=== PATIENT | male | born 1985 | race Caucasian/White ===

== ENCOUNTER 2017-08-10 15:09 | Inpatient (IN) | payer MEDICARE, MEDICAID ==
[~2017-08-10] VITALS: Ht 157.5 cm; Wt 31.4 kg
[~2017-08-10 15:09] MED LIST: ARIP300S IM; CITA10TA13 PO; DIVA500T69 PO; ESZO1TAB10 PO; FISH1CAP49 PO; LORA10TA60 PO; OMEP10CA2 PO; QUET150T PO; SIMV5TAB2 PO
[2017-08-10 18:31] VITALS: BP 138/89
[2017-08-10 20:09] VITALS: BP 145/86
[2017-08-10] MEDS ORDERED: ALBUTEROL SULFATE HFA 90 MCG/PUFF 8 GM INHALER IH PRN (20:30)
[2017-08-10] MEDS ORDERED: IBUPROFEN 600 MG TABLET PO PRN (20:30)
[2017-08-10] MEDS ORDERED: ACETAMINOPHEN 325 MG TABLET PO PRN (20:30)
[2017-08-10] MEDS: SIMVASTATIN 10 MG TABLET PO SCH (21:43)
[2017-08-10] MEDS: DIVALPROEX SODIUM 500 MG ER TABLET PO SCH (21:43)
[2017-08-10] MEDS: ARIPiprazole 5 MG TABLET PO SCH (21:44)
[2017-08-11] MEDS: ZOLPIDEM TARTRATE 10 MG TABLET PO PRN ×2 (00:16→20:53)
[2017-08-11 07:28] LABS: BASOPHILS % (AUTO) 0.6 % (0.0-2.0); EOSINOPHILS % (AUTO) 1.8 % (1.0-6.0); HEMATOCRIT 39.2 % (41-53); HEMOGLOBIN 13.4 g/dL (13.5-17.5); LYMPHOCYTES % (AUTO) 44.4 % (22.0-44.0); MEAN CORPUSCULAR HEMOGLOBIN 31.5 pg (26.0-34.0); MEAN CORPUSCULAR HGB CONC 34.2 G/dL (31.0-37.0); MEAN CORPUSCULAR VOLUME 92 fL (80-100); MONOCYTES # (AUTO) 0.7 K/uL (0.1-1.0); MONOCYTES % (AUTO) 9.9 % (2.0-9.0); NEUTROPHILS # (AUTO) 2.9 K/uL (1.8-7.7); NEUTROPHILS % (AUTO) 43.3 % (40.0-70.0); PLATELET COUNT (AUTO) 136 K/uL (150-450); RED BLOOD CELL COUNT(AUTO) 4.26 MIL/uL (4.50-5.90); RED CELL DISTRIBUTION WIDTH 13.9 % (11.5-14.5); WHITE BLOOD COUNT (AUTO) 6.8 K/uL (4.5-11.0)
[2017-08-11] MEDS ORDERED: BACITRACIN 28.4 GM OINTMENT TP PRN (07:45)
[2017-08-11] MEDS ORDERED: MAGNESIUM HYDROXIDE SUSPENSION 30 ML UDCUP PO PRN (07:45)
[2017-08-11] MEDS ORDERED: PETROLATUM,WHITE 71 GM JELLY TP PRN (07:45)
[2017-08-11] MEDS ORDERED: BENZOCAINE/MENTHOL LOZENGE MM PRN (07:45)
[2017-08-11] MEDS ORDERED: ACETAMINOPHEN 325 MG TABLET PO PRN (07:45)
[2017-08-11] MEDS ORDERED: MAG HYDROX/AL HYDROX/SIMETH ES 30 ML SUSPENSION UDCUP PO PRN (07:45)
[2017-08-11] MEDS ORDERED: ONDANSETRON HCL 4 MG TABLET PO PRN (07:45)
[2017-08-11] MEDS ORDERED: ALBUTEROL SULFATE HFA 90 MCG/PUFF 8 GM INHALER IH PRN (07:45)
[2017-08-11] MEDS ORDERED: CloNIDine HCL 0.1 MG TABLET PO PRN (07:45)
[2017-08-11] MEDS ORDERED: LOPERAMIDE HCL 2 MG CAPSULE PO PRN (07:45)
[2017-08-11 07:48] LABS: ALANINE AMINOTRANSFERASE 48 U/L (12-78); ALBUMIN 3.5 g/dL (3.4-5.0); ANION GAP 7 mmol/L (8-16); ASPARTATE AMINOTRANSFERASE 33 U/L (15-37); BILIRUBIN,TOTAL 0.3 mg/dL (0.1-1.0); CALCIUM, TOTAL 8.7 mg/dL (8.8-10.5); CARBON DIOXIDE 29 mmol/L (22-29); CHLORIDE 108 mmol/L (98-107); CHOL/HDL RATIO 3.5 (4.2-7.3); CREATININE 0.84 mg/dL (0.60-1.30); GLOMERULAR FILTR. RATE CALC > 60 mL/min (>60); POTASSIUM 3.9 mmol/L (3.5-5.1); SODIUM SERUM 144 mmol/L (136-145); THYROID STIMULATING HORMONE 0.77 uIU/mL (0.36-3.74); TOTAL PROTEIN, SERUM 6.2 g/dL (6.4-8.2); UREA NITROGEN, BLOOD 17 mg/dL (7-18)
[2017-08-11 08:36] VITALS: BP 122/69
[2017-08-11] MEDS ORDERED: OMEPRAZOLE 20 MG CAPSULE PO SCH (09:00)
[2017-08-11] MEDS: RANITIDINE HCL 150 MG TABLET PO SCH ×2 (09:21→16:53)
[2017-08-11] MEDS: LORATADINE 10 MG TABLET PO SCH (09:22)
[2017-08-11] MEDS: LORazepam 2 MG TABLET PO PRN ×3 (09:31→20:53)
[2017-08-11 16:00] VITALS: BP 116/67
[2017-08-11] MEDS: QUEtiapine FUMARATE 100 MG TABLET PO PRN (16:53)
[2017-08-11] MEDS: DIVALPROEX SODIUM 500 MG ER TABLET PO SCH (20:53)
[2017-08-11] MEDS: ARIPiprazole 5 MG TABLET PO SCH (20:53)
[2017-08-11] MEDS: SIMVASTATIN 10 MG TABLET PO SCH (20:53)
[2017-08-12 05:54] VITALS: BP 129/68
[2017-08-12] MEDS: LORazepam 2 MG TABLET PO PRN ×3 (06:12→22:05)
[2017-08-12 08:00] VITALS: BP 121/73
[2017-08-12] MEDS: QUEtiapine FUMARATE 100 MG TABLET PO PRN (08:56)
[2017-08-12] MEDS: RANITIDINE HCL 150 MG TABLET PO SCH ×2 (08:56→16:54)
[2017-08-12] MEDS: LORATADINE 10 MG TABLET PO SCH (08:56)
[2017-08-12 16:00] VITALS: BP 130/68
[2017-08-12] MEDS: ZOLPIDEM TARTRATE 10 MG TABLET PO PRN (20:25)
[2017-08-12] MEDS: SIMVASTATIN 10 MG TABLET PO SCH (20:25)
[2017-08-12] MEDS: DIVALPROEX SODIUM 500 MG ER TABLET PO SCH (20:25)
[2017-08-12] MEDS: ARIPiprazole 5 MG TABLET PO SCH (20:25)
[2017-08-13] MEDS: QUEtiapine FUMARATE 100 MG TABLET PO PRN ×3 (01:24→16:07)
[2017-08-13] MEDS: LORazepam 2 MG TABLET PO PRN ×3 (01:24→20:10)
[2017-08-13 08:32] VITALS: BP 139/85
[2017-08-13] MEDS: LORATADINE 10 MG TABLET PO SCH (09:45)
[2017-08-13] MEDS: CITALOPRAM HYDROBROMIDE 10 MG TABLET PO SCH (09:45)
[2017-08-13] MEDS: RANITIDINE HCL 150 MG TABLET PO SCH ×2 (09:45→16:07)
[2017-08-13] MEDS: IBUPROFEN 600 MG TABLET PO PRN (12:36)
[2017-08-13 12:40] VITALS: BP 130/84
[2017-08-13 16:00] VITALS: BP 124/74
[2017-08-13] MEDS: DiphenhydrAMINE HCL 25 MG CAPSULE PO SCH (20:09)
[2017-08-13] MEDS: ARIPiprazole 5 MG TABLET PO SCH (20:09)
[2017-08-13] MEDS: ZOLPIDEM TARTRATE 10 MG TABLET PO PRN (20:10)
[2017-08-13] MEDS: DIVALPROEX SODIUM 500 MG ER TABLET PO SCH (20:10)
[2017-08-13] MEDS: SIMVASTATIN 10 MG TABLET PO SCH (20:10)
[2017-08-14 00:14] VITALS: BP 117/81
[2017-08-14] MEDS: QUEtiapine FUMARATE 100 MG TABLET PO PRN ×3 (00:18→23:59)
[2017-08-14] MEDS: LORazepam 2 MG TABLET PO PRN ×3 (00:18→14:06)
[2017-08-14] MEDS: IBUPROFEN 600 MG TABLET PO PRN (02:47)
[2017-08-14 08:10] VITALS: BP 122/72
[2017-08-14] MEDS: RANITIDINE HCL 150 MG TABLET PO SCH ×2 (08:33→16:15)
[2017-08-14] MEDS: LORATADINE 10 MG TABLET PO SCH (08:33)
[2017-08-14] MEDS: CITALOPRAM HYDROBROMIDE 10 MG TABLET PO SCH (08:34)
[2017-08-14 16:15] VITALS: BP 126/72
[2017-08-14] MEDS: DiphenhydrAMINE HCL 25 MG CAPSULE PO SCH (20:12)
[2017-08-14] MEDS: SIMVASTATIN 10 MG TABLET PO SCH (20:13)
[2017-08-14] MEDS: ZOLPIDEM TARTRATE 10 MG TABLET PO PRN (20:13)
[2017-08-14] MEDS: DIVALPROEX SODIUM 500 MG ER TABLET PO SCH (20:13)
[2017-08-14] MEDS: ARIPiprazole 5 MG TABLET PO SCH (20:13)
[2017-08-15 01:14] VITALS: BP 132/65
[2017-08-15 08:26] VITALS: BP 132/81
[2017-08-15] MEDS: RANITIDINE HCL 150 MG TABLET PO SCH ×2 (08:45→16:23)
[2017-08-15] MEDS: CITALOPRAM HYDROBROMIDE 10 MG TABLET PO SCH (08:45)
[2017-08-15] MEDS: LORATADINE 10 MG TABLET PO SCH (08:45)
[2017-08-15] MEDS: QUEtiapine FUMARATE 100 MG TABLET PO PRN ×2 (09:01→16:23)
[2017-08-15] MEDS: LORazepam 0.5 MG TABLET PO PRN ×2 (13:54→20:35)
[2017-08-15 16:00] VITALS: BP 108/70
[2017-08-15] MEDS: ARIPiprazole 5 MG TABLET PO SCH (20:34)
[2017-08-15] MEDS: DiphenhydrAMINE HCL 25 MG CAPSULE PO SCH (20:34)
[2017-08-15] MEDS: ZOLPIDEM TARTRATE 10 MG TABLET PO PRN (20:35)
[2017-08-15] MEDS: SIMVASTATIN 10 MG TABLET PO SCH (20:35)
[2017-08-15] MEDS: DIVALPROEX SODIUM 500 MG ER TABLET PO SCH (20:35)
[2017-08-16] MEDS: QUEtiapine FUMARATE 100 MG TABLET PO PRN ×3 (00:08→16:09)
[2017-08-16 00:11] VITALS: BP 123/76
[2017-08-16] MEDS: IBUPROFEN 600 MG TABLET PO PRN ×2 (03:22→11:02)
[2017-08-16 08:18] VITALS: BP 107/65
[2017-08-16] MEDS: CITALOPRAM HYDROBROMIDE 10 MG TABLET PO SCH (08:20)
[2017-08-16] MEDS: LORATADINE 10 MG TABLET PO SCH (08:20)
[2017-08-16] MEDS: RANITIDINE HCL 150 MG TABLET PO SCH ×2 (08:20→16:09)
[2017-08-16 11:00] VITALS: BP 104/70
[2017-08-16] MEDS: LORazepam 0.5 MG TABLET PO PRN ×2 (11:00→16:09)
[2017-08-16] MEDS ORDERED: BENZOCAINE 10% 7 GM GEL TP PRN (12:30)
[2017-08-16 16:08] VITALS: BP 135/88
[2017-08-16] MEDS: ARIPiprazole 5 MG TABLET PO SCH (20:08)
[2017-08-16] MEDS: ZOLPIDEM TARTRATE 10 MG TABLET PO PRN (20:09)
[2017-08-16] MEDS: DiphenhydrAMINE HCL 25 MG CAPSULE PO SCH (20:09)
[2017-08-16] MEDS: DIVALPROEX SODIUM 500 MG ER TABLET PO SCH (20:09)
[2017-08-16] MEDS: SIMVASTATIN 10 MG TABLET PO SCH (20:09)
[2017-08-17 00:16] VITALS: BP 140/99
[2017-08-17] MEDS: QUEtiapine FUMARATE 100 MG TABLET PO PRN (00:16)
[2017-08-17] MEDS: LORazepam 0.5 MG TABLET PO PRN ×2 (00:16→05:16)
[2017-08-17] MEDS ORDERED: MAGNESIUM SULFATE 454 GM BOX PO SCH (07:30)
[2017-08-17] MEDS: RANITIDINE HCL 150 MG TABLET PO SCH (08:15)
[2017-08-17] MEDS: LORATADINE 10 MG TABLET PO SCH (08:15)
[2017-08-17] MEDS: CITALOPRAM HYDROBROMIDE 10 MG TABLET PO SCH (08:15)
[2017-08-17 08:16] VITALS: BP 139/82
[2017-08-17] MEDS ORDERED: DIVA500T52 PO (09:23)
[2017-08-17] MEDS ORDERED: ARIP5TAB8 PO (09:25)
[2017-08-17] MEDS ORDERED: RANI150T7 PO (09:25)
[2017-08-17] MEDS ORDERED: DIPH50 PO (09:25)
[2017-11-10] MEDS ORDERED: SIMV-259 PO (17:14)
[2017-11-18] MEDS ORDERED: QUET50TA PO (15:14)
[2017-11-18] MEDS ORDERED: ARIP5TAB8 PO (15:16)
[2017-11-18] MEDS ORDERED: CHOL100053 PO (15:16)
== END 2017-08-17 10:20 | disposition home or self-care (01) | DRG 885 ==
LOC: EDSTATUS 18:04 → B3A 18:55
PROVIDERS: ADMIT Psychiatry & Neurology Psychiatry; ATTEND Psychiatry & Neurology Psychiatry
DX: F31.5 Bipolar disorder, current episode depressed, severe, with psychotic features (principal); R45.851 Suicidal ideations; F15.20 Other stimulant dependence, uncomplicated; R03.0 Elevated blood-pressure reading, without diagnosis of hypertension; K21.9 Gastro-esophageal reflux disease without esophagitis; J45.909 Unspecified asthma, uncomplicated; G47.00 Insomnia, unspecified; F17.200 Nicotine dependence, unspecified, uncomplicated; F12.10 Cannabis abuse, uncomplicated; K08.89 Other specified disorders of teeth and supporting structures; F10.10 Alcohol abuse, uncomplicated; Z59.0 Homelessness; Z71.6 Tobacco abuse counseling; Z88.1 Allergy status to other antibiotic agents; Z91.19 Patient's noncompliance with other medical treatment and regimen
CPT/HCPCS: 84439; 84443; 87081

== ENCOUNTER 2017-11-18 15:38 | Inpatient (IN) | payer MEDICARE, MEDICAID ==
[~2017-11-18] VITALS: Ht 162.6 cm; Wt 70.8 kg
[~2017-11-18 15:38] MED LIST changes: +ARIP5TAB8 PO; +CHOL100053 PO; +DIPH50 PO; +DIVA500T52 PO; -DIVA500T69 PO; -ESZO1TAB10 PO; -FISH1CAP49 PO; -OMEP10CA2 PO; -QUET150T PO; +QUET50TA PO; +RANI150T7 PO; +SIMV-259 PO; -SIMV5TAB2 PO
[2017-11-18] MEDS ORDERED: DiphenhydrAMINE HCL 25 MG CAPSULE PO PRN (16:00)
[2017-11-18] MEDS ORDERED: MAG HYDROX/AL HYDROX/SIMETH ES 30 ML SUSPENSION UDCUP PO PRN (16:00)
[2017-11-18] MEDS ORDERED: LOPERAMIDE HCL 2 MG CAPSULE PO PRN (16:00)
[2017-11-18] MEDS ORDERED: MAGNESIUM HYDROXIDE SUSPENSION 30 ML UDCUP PO PRN (16:00)
[2017-11-18] MEDS ORDERED: ACETAMINOPHEN 325 MG TABLET PO PRN (16:00)
[2017-11-18] MEDS ORDERED: QUEtiapine FUMARATE 100 MG TABLET PO SCH (16:00)
[2017-11-18] MEDS ORDERED: ACETAMINOPHEN 650 MG/20.3 ML SOLUTION UDCUP PO PRN (16:15)
[2017-11-18] MEDS ORDERED: PETROLATUM,WHITE 71 GM JELLY TP PRN (16:15)
[2017-11-18] MEDS ORDERED: CloNIDine HCL 0.1 MG TABLET PO PRN (16:15)
[2017-11-18] MEDS ORDERED: ONDANSETRON HCL 4 MG TABLET PO PRN (16:15)
[2017-11-18] MEDS ORDERED: ALBUTEROL SULFATE HFA 90 MCG/PUFF 8 GM INHALER IH PRN (16:15)
[2017-11-18] MEDS ORDERED: BACITRACIN 28.4 GM OINTMENT TP PRN (16:15)
[2017-11-18] MEDS ORDERED: BENZOCAINE/MENTHOL LOZENGE [8 LOZENGES/PACKET] PO PRN (16:15)
[2017-11-18 19:00] VITALS: BP 135/80
[2017-11-18] MEDS: ZOLPIDEM TARTRATE 10 MG TABLET PO PRN (20:55)
[2017-11-18] MEDS: QUEtiapine FUMARATE 200 MG TABLET PO SCH (20:55)
[2017-11-18] MEDS: DIVALPROEX SODIUM 500 MG ER TABLET PO SCH (20:55)
[2017-11-18] MEDS: ChlorproMAZINE HCL 100 MG TABLET PO PRN (20:55)
[2017-11-18] MEDS ORDERED: ARIPiprazole 5 MG TABLET PO SCH (21:00)
[2017-11-19] VITALS (10 sets, daily range): BP systolic 112–138; BP diastolic 68–88
[2017-11-19] MEDS: ChlorproMAZINE HCL 100 MG TABLET PO SCH ×3 (07:16→16:50)
[2017-11-19] MEDS: OMEGA-3/DHA/EPA/FISH OIL 1,000 MG CAPSULE PO SCH (08:45)
[2017-11-19] MEDS: DIVALPROEX SODIUM 500 MG ER TABLET PO SCH ×2 (08:45→20:32)
[2017-11-19] MEDS: RANITIDINE HCL 150 MG TABLET PO SCH (08:45)
[2017-11-19] MEDS: ChlorproMAZINE HCL 100 MG TABLET PO PRN (08:45)
[2017-11-19] MEDS: LORazepam 2 MG TABLET PO PRN ×2 (08:45→13:15)
[2017-11-19] MEDS: IBUPROFEN 600 MG TABLET PO PRN ×2 (11:22→20:32)
[2017-11-19] MEDS ORDERED: QUET100T PO (19:04)
[2017-11-19] MEDS: ARIPiprazole 10 MG TABLET PO SCH (20:32)
[2017-11-19] MEDS: QUEtiapine FUMARATE 200 MG TABLET PO SCH (20:32)
[2017-11-20] MEDS: LORazepam 2 MG TABLET PO PRN ×2 (03:42→17:35)
[2017-11-20 03:46] VITALS: BP 105/69
[2017-11-20] MEDS: ChlorproMAZINE HCL 100 MG TABLET PO SCH ×3 (06:28→17:35)
[2017-11-20 08:00] VITALS: BP 121/76
[2017-11-20] MEDS: DIVALPROEX SODIUM 500 MG ER TABLET PO SCH ×2 (09:44→21:30)
[2017-11-20] MEDS: OMEGA-3/DHA/EPA/FISH OIL 1,000 MG CAPSULE PO SCH (09:45)
[2017-11-20] MEDS: RANITIDINE HCL 150 MG TABLET PO SCH (09:45)
[2017-11-20 16:12] VITALS: BP 114/69
[2017-11-20] MEDS: QUEtiapine FUMARATE 100 MG TABLET PO PRN (17:35)
[2017-11-20] MEDS: QUEtiapine FUMARATE 200 MG TABLET PO SCH (21:30)
[2017-11-20] MEDS: ZOLPIDEM TARTRATE 10 MG TABLET PO PRN (21:30)
[2017-11-20] MEDS: ARIPiprazole 10 MG TABLET PO SCH (21:30)
[2017-11-21 06:05] VITALS: BP 107/67
[2017-11-21] MEDS: ChlorproMAZINE HCL 100 MG TABLET PO SCH ×3 (06:25→16:54)
[2017-11-21 08:13] VITALS: BP 117/71
[2017-11-21 08:46] LABS: HEMATOCRIT 39.4 % (41-53); HEMOGLOBIN 13.5 g/dL (13.5-17.5); MEAN CORPUSCULAR HEMOGLOBIN 30.9 pg (26.0-34.0); MEAN CORPUSCULAR HGB CONC 34.3 G/dL (31.0-37.0); MEAN CORPUSCULAR VOLUME 90 fL (80-100); PLATELET COUNT (AUTO) 127 K/uL (150-450); RED BLOOD CELL COUNT(AUTO) 4.38 MIL/uL (4.50-5.90); RED CELL DISTRIBUTION WIDTH 14.1 % (11.5-14.5)
[2017-11-21] MEDS: OMEGA-3/DHA/EPA/FISH OIL 1,000 MG CAPSULE PO SCH (09:12)
[2017-11-21] MEDS: RANITIDINE HCL 150 MG TABLET PO SCH (09:12)
[2017-11-21] MEDS: DIVALPROEX SODIUM 500 MG ER TABLET PO SCH ×2 (09:12→20:33)
[2017-11-21 09:14] LABS: ANION GAP 7 mmol/L (8-16); CALCIUM, TOTAL 8.7 mg/dL (8.8-10.5); CARBON DIOXIDE 28 mmol/L (22-29); CHLORIDE 102 mmol/L (98-107); CREATININE 0.96 mg/dL (0.60-1.30); GLOMERULAR FILTR. RATE CALC > 60 mL/min (>60); GLUCOSE,RANDOM 103 mg/dL (70-110); SODIUM SERUM 137 mmol/L (136-145); UREA NITROGEN, BLOOD 15 mg/dL (7-18)
[2017-11-21 10:29] LABS: BAND NEUTROPHILS % (MANUAL) 1 % (1-5); LYMPHOCYTES % (MANUAL) 33 % (22-44); MONOCYTES % (MANUAL) 5 % (2-9); SEGMENTED NEUTROPHILS % 61 % (40-70)
[2017-11-21] MEDS: LORazepam 2 MG TABLET PO PRN (11:01)
[2017-11-21] MEDS: IBUPROFEN 600 MG TABLET PO PRN (13:50)
[2017-11-21 13:52] VITALS: BP 123/77
[2017-11-21] MEDS ORDERED: MAGNESIUM OXIDE 400 MG TABLET PO SCH ×2 (14:00→17:00)
[2017-11-21 16:00] VITALS: BP 114/79
[2017-11-21] MEDS: MAGNESIUM OXIDE 400 MG TABLET PO SCH (16:54)
[2017-11-21] MEDS: ARIPiprazole 15 MG TABLET PO SCH (20:33)
[2017-11-21] MEDS: QUEtiapine FUMARATE 200 MG TABLET PO SCH (20:33)
[2017-11-21] MEDS: QUEtiapine FUMARATE 100 MG TABLET PO PRN (23:43)
[2017-11-21] MEDS: ZOLPIDEM TARTRATE 10 MG TABLET PO PRN (23:43)
[2017-11-22 00:05] VITALS: BP 115/80
[2017-11-22] MEDS: ChlorproMAZINE HCL 100 MG TABLET PO SCH ×3 (06:20→16:05)
[2017-11-22] MEDS: MAGNESIUM OXIDE 400 MG TABLET PO SCH ×2 (08:12→16:06)
[2017-11-22] MEDS: RANITIDINE HCL 150 MG TABLET PO SCH (08:12)
[2017-11-22] MEDS: DIVALPROEX SODIUM 500 MG ER TABLET PO SCH ×2 (08:12→21:05)
[2017-11-22] MEDS: LORazepam 2 MG TABLET PO PRN ×2 (08:12→16:05)
[2017-11-22] MEDS: OMEGA-3/DHA/EPA/FISH OIL 1,000 MG CAPSULE PO SCH (08:16)
[2017-11-22 09:12] VITALS: BP 120/68
[2017-11-22] MEDS: IBUPROFEN 600 MG TABLET PO PRN ×2 (10:16→22:23)
[2017-11-22 16:00] VITALS: BP 120/78
[2017-11-22] MEDS: QUEtiapine FUMARATE 200 MG TABLET PO SCH (21:05)
[2017-11-22] MEDS: ARIPiprazole 15 MG TABLET PO SCH (21:05)
[2017-11-22] MEDS: ZOLPIDEM TARTRATE 10 MG TABLET PO PRN (22:23)
[2017-11-23 03:49] VITALS: BP 119/73
[2017-11-23] MEDS: IBUPROFEN 600 MG TABLET PO PRN ×2 (04:45→18:46)
[2017-11-23] MEDS: ChlorproMAZINE HCL 100 MG TABLET PO SCH ×3 (06:18→16:19)
[2017-11-23 08:13] LABS: BASOPHILS % (AUTO) 0.6 % (0.0-2.0); EOSINOPHILS % (AUTO) 2.5 % (1.0-6.0); HEMATOCRIT 38.6 % (41-53); LYMPHOCYTES # (AUTO) 2.3 K/uL (1.0-4.8); LYMPHOCYTES % (AUTO) 42.3 % (22.0-44.0); MEAN CORPUSCULAR HEMOGLOBIN 30.6 pg (26.0-34.0); MEAN CORPUSCULAR HGB CONC 33.7 G/dL (31.0-37.0); MEAN CORPUSCULAR VOLUME 91 fL (80-100); MONOCYTES # (AUTO) 0.5 K/uL (0.1-1.0); MONOCYTES % (AUTO) 9.6 % (2.0-9.0); NEUTROPHILS # (AUTO) 2.4 K/uL (1.8-7.7); PLATELET COUNT (AUTO) 124 K/uL (150-450); RED BLOOD CELL COUNT(AUTO) 4.26 MIL/uL (4.50-5.90); RED CELL DISTRIBUTION WIDTH 14.4 % (11.5-14.5)
[2017-11-23 08:45] VITALS: BP 125/74
[2017-11-23] MEDS: RANITIDINE HCL 150 MG TABLET PO SCH (08:46)
[2017-11-23] MEDS: OMEGA-3/DHA/EPA/FISH OIL 1,000 MG CAPSULE PO SCH (08:46)
[2017-11-23] MEDS: LORazepam 2 MG TABLET PO PRN ×3 (08:46→17:33)
[2017-11-23] MEDS: DIVALPROEX SODIUM 500 MG ER TABLET PO SCH ×2 (08:46→20:30)
[2017-11-23] MEDS: MAGNESIUM OXIDE 400 MG TABLET PO SCH (08:46)
[2017-11-23] MEDS ORDERED: ARIPiprazole ER SUSPENSION 400 MG PRE-FILLED DUAL CHAMBER SYRINGE IM SCH (09:00)
[2017-11-23 09:59] LABS: ALBUMIN 3.6 g/dL (3.4-5.0); BILIRUBIN,TOTAL 0.1 mg/dL (0.1-1.0); TOTAL PROTEIN, SERUM 6.6 g/dL (6.4-8.2)
[2017-11-23 10:02] LABS: BILIRUBIN,DIRECT 0.1 mg/dL (0.00-0.20)
[2017-11-23] MEDS: QUEtiapine FUMARATE 100 MG TABLET PO PRN (12:47)
[2017-11-23 16:32] VITALS: BP 118/75
[2017-11-23 18:40] VITALS: BP 129/79
[2017-11-23] MEDS: ARIPiprazole 15 MG TABLET PO SCH (20:30)
[2017-11-23] MEDS: ZOLPIDEM TARTRATE 10 MG TABLET PO PRN (21:13)
[2017-11-24 03:00] VITALS: BP 124/86
[2017-11-24] MEDS: IBUPROFEN 600 MG TABLET PO PRN ×2 (03:04→10:25)
[2017-11-24] MEDS: LORazepam 2 MG TABLET PO PRN (03:05)
[2017-11-24] MEDS: ChlorproMAZINE HCL 100 MG TABLET PO SCH (06:17)
[2017-11-24] MEDS ORDERED: CHLO100T24 PO (06:49)
[2017-11-24 08:39] VITALS: BP 134/84
[2017-11-24] MEDS ORDERED: OMEG-135 PO (09:54)
[2017-11-24] MEDS: DIVALPROEX SODIUM 500 MG ER TABLET PO SCH (10:24)
[2017-11-24] MEDS: RANITIDINE HCL 150 MG TABLET PO SCH (10:25)
[2017-11-24] MEDS: OMEGA-3/DHA/EPA/FISH OIL 1,000 MG CAPSULE PO SCH (10:25)
== END 2017-11-24 10:40 | disposition home or self-care (01) | DRG 885 ==
LOC: B3A 17:26
PROVIDERS: ADMIT Psychiatry & Neurology Psychiatry; ATTEND Psychiatry & Neurology Psychiatry
DX: F31.64 Bipolar disorder, current episode mixed, severe, with psychotic features (principal); F15.20 Other stimulant dependence, uncomplicated; Z91.14 Patient's other noncompliance with medication regimen; Z91.19 Patient's noncompliance with other medical treatment and regimen; E66.9 Obesity, unspecified; E78.5 Hyperlipidemia, unspecified; F12.20 Cannabis dependence, uncomplicated; F14.10 Cocaine abuse, uncomplicated; F17.200 Nicotine dependence, unspecified, uncomplicated; F41.9 Anxiety disorder, unspecified; G47.00 Insomnia, unspecified; J45.909 Unspecified asthma, uncomplicated; K08.89 Other specified disorders of teeth and supporting structures; K21.9 Gastro-esophageal reflux disease without esophagitis; Z79.899 Other long term (current) drug therapy; Z59.0 Homelessness; Z71.51 Drug abuse counseling and surveillance of drug abuser; Z71.6 Tobacco abuse counseling; Z88.1 Allergy status to other antibiotic agents; Z88.8 Allergy status to other drugs, medicaments and biological substances
CPT/HCPCS: 83735; 84100; 85007; 86803; J0401

== ENCOUNTER 2017-12-13 20:10 | Inpatient (IN) | payer MEDICARE, MEDICAID ==
[~2017-12-13] VITALS: Ht 152.4 cm; Wt 71.8 kg
[~2017-12-13 20:10] MED LIST changes: +ARIP10TA8 PO; -ARIP300S IM; +CHLO100T24 PO; -CITA10TA13 PO; -DIPH50 PO; -LORA10TA60 PO; +OMEG-135 PO; -QUET50TA PO; -SIMV-259 PO
[2017-12-13] MEDS ORDERED: QUET100T PO (22:01)
[2017-12-13 22:19] LABS: EOSINOPHILS % (AUTO) 0.7 % (1.0-6.0); HEMATOCRIT 39.8 % (41-53); HEMOGLOBIN 13.4 g/dL (13.5-17.5); LYMPHOCYTES # (AUTO) 2.6 K/uL (1.0-4.8); LYMPHOCYTES % (AUTO) 29.1 % (22.0-44.0); MEAN CORPUSCULAR HEMOGLOBIN 30.2 pg (26.0-34.0); MEAN CORPUSCULAR HGB CONC 33.7 G/dL (31.0-37.0); MEAN CORPUSCULAR VOLUME 90 fL (80-100); MONOCYTES # (AUTO) 0.7 K/uL (0.1-1.0); MONOCYTES % (AUTO) 7.4 % (2.0-9.0); NEUTROPHILS # (AUTO) 5.5 K/uL (1.8-7.7); NEUTROPHILS % (AUTO) 61.8 % (40.0-70.0); PLATELET COUNT (AUTO) 207 K/uL (150-450); RED BLOOD CELL COUNT(AUTO) 4.44 MIL/uL (4.50-5.90); RED CELL DISTRIBUTION WIDTH 14.7 % (11.5-14.5)
[2017-12-13 22:30] LABS: ANION GAP 5 mmol/L (8-16); CALCIUM, TOTAL 9.2 mg/dL (8.8-10.5); CARBON DIOXIDE 31 mmol/L (22-29); CHLORIDE 104 mmol/L (98-107); CREATININE 0.74 mg/dL (0.60-1.30); GLOMERULAR FILTR. RATE CALC > 60 mL/min (>60); GLUCOSE,RANDOM 83 mg/dL (70-110); POTASSIUM 3.8 mmol/L (3.5-5.1); SODIUM SERUM 140 mmol/L (136-145); UREA NITROGEN, BLOOD 11 mg/dL (7-18)
[2017-12-13 22:33] LABS: AMPHET/METH SCREEN,URINE POSITIVE (NEGATIVE); BARBITURATE SCREEN, URINE NEGATIVE (NEGATIVE); BENZODIAZEPINES SCREEN,URINE NEGATIVE (NEGATIVE); CANNABINOID SCREEN,URINE POSITIVE (NEGATIVE); COCAINE SCREEN,URINE NEGATIVE (NEGATIVE); METHADONE SCREEN, URINE NEGATIVE (NEGATIVE); OPIATE SCREEN,URINE POSITIVE (NEGATIVE)
[2017-12-13 22:36] LABS: ALANINE AMINOTRANSFERASE 33 U/L (12-78); ALBUMIN 4.3 g/dL (3.4-5.0); ALKALINE PHOSPHATASE 61 U/L (46-116); ASPARTATE AMINOTRANSFERASE 28 U/L (15-37); BILIRUBIN,TOTAL 0.4 mg/dL (0.1-1.0); TOTAL PROTEIN, SERUM 7.7 g/dL (6.4-8.2); VALPROIC ACID 36 mcg/mL (50-100)
[2017-12-13 22:40] LABS: PHENCYCLIDINE SCREEN,URINE NEGATIVE (NEGATIVE)
[2017-12-13] MEDS ORDERED: LORazepam 2 MG TABLET PO ONE (23:15)
[2017-12-13] MEDS ORDERED: ZOLPIDEM TARTRATE 5 MG TABLET PO PRN (23:45)
[2017-12-13] MEDS ORDERED: ChlorproMAZINE HCL 25 MG TABLET PO PRN (23:45)
[2017-12-13] MEDS ORDERED: LORazepam 2 MG TABLET PO PRN (23:45)
[2017-12-14] MEDS ORDERED: ChlorproMAZINE HCL 100 MG TABLET PO PRN (00:15)
[2017-12-14 03:41] VITALS: BP 124/70
[2017-12-14] MEDS ORDERED: LORazepam 2 MG/ML VIAL IM ONE (08:15)
[2017-12-14] MEDS ORDERED: DiphenhydrAMINE HCL 50 MG/ML VIAL IM ONE (08:15)
[2017-12-14 08:38] VITALS: BP 132/83
[2017-12-14 08:59] LABS: CHOL/HDL RATIO 2.8 (4.2-7.3)
[2017-12-14] MEDS ORDERED: DIVALPROEX SODIUM 500 MG ER TABLET PO SCH (09:00)
[2017-12-14] MEDS ORDERED: BENZOCAINE/MENTHOL LOZENGE MM PRN (09:15)
[2017-12-14] MEDS ORDERED: IBUPROFEN 600 MG TABLET PO PRN (09:15)
[2017-12-14] MEDS ORDERED: ACETAMINOPHEN 325 MG TABLET PO PRN (09:15)
[2017-12-14] MEDS ORDERED: BACITRACIN 28.4 GM OINTMENT TP PRN (09:15)
[2017-12-14] MEDS ORDERED: ONDANSETRON HCL 4 MG TABLET PO PRN (09:15)
[2017-12-14] MEDS ORDERED: PETROLATUM,WHITE 71 GM JELLY TP PRN (09:15)
[2017-12-14] MEDS ORDERED: MAGNESIUM HYDROXIDE SUSPENSION 30 ML UDCUP PO PRN (09:15)
[2017-12-14] MEDS ORDERED: LOPERAMIDE HCL 2 MG CAPSULE PO PRN (09:15)
[2017-12-14] MEDS ORDERED: ALBUTEROL SULFATE HFA 90 MCG/PUFF 8 GM INHALER IH PRN (09:15)
[2017-12-14] MEDS ORDERED: MAG HYDROX/AL HYDROX/SIMETH ES 30 ML SUSPENSION UDCUP PO PRN (09:15)
[2017-12-14] MEDS ORDERED: CloNIDine HCL 0.1 MG TABLET PO PRN (09:15)
[2017-12-14] MEDS ORDERED: QUEtiapine FUMARATE 100 MG TABLET PO SCH (21:00)
[2017-12-14] MEDS ORDERED: ARIPiprazole 5 MG TABLET PO SCH (21:00)
== END 2017-12-14 10:26 | DRG 885 ==
LOC: EMS 20:15 → B2X 23:30
PROVIDERS: ADMIT Psychiatry & Neurology Psychiatry; ATTEND Psychiatry & Neurology Psychiatry
DX: F25.9 Schizoaffective disorder, unspecified (principal); F31.9 Bipolar disorder, unspecified; Z88.1 Allergy status to other antibiotic agents; Z88.8 Allergy status to other drugs, medicaments and biological substances; Z79.899 Other long term (current) drug therapy
CPT/HCPCS: 87081; 99285; G0480; J1200; J2060; J3230

== ENCOUNTER → 2018-05-14 | Outpatient (CLI) | payer MEDICARE, OTHER ==
[~2018-05-14] MED LIST changes: -ARIP5TAB8 PO; +BENZ1TAB10 PO; -CHLO100T24 PO; -CHOL100053 PO; +CITA10TA68 PO; +DIVA250T4 PO; +ESZO2 PO; -OMEG-135 PO; +QUET200T PO; -RANI150T7 PO
[2018-05-14 19:12] LABS: HEMOGLOBIN A1C 5.3 % (4.5-6.2)
== END | disposition home or self-care (01) ==
LOC: LABMN 10:30
PROVIDERS: ATTEND Psychiatry & Neurology Psychiatry
DX: F25.0 Schizoaffective disorder, bipolar type (principal); F41.9 Anxiety disorder, unspecified; J45.909 Unspecified asthma, uncomplicated; Z79.899 Other long term (current) drug therapy
CPT/HCPCS: 83036

== ENCOUNTER 2018-10-19 16:40 | Inpatient (IN) | payer MEDICARE, MEDICAID ==
[~2018-10-19] VITALS: Ht 160 cm; Wt 66.5 kg
[2018-10-19] MEDS ORDERED: ChlorproMAZINE HCL 100 MG TABLET PO PRN (18:15)
[2018-10-19] MEDS ORDERED: ZOLPIDEM TARTRATE 5 MG TABLET PO PRN (18:15)
[2018-10-19 18:44] VITALS: BP 127/86
[2018-10-19] MEDS ORDERED: PNEUMOCOCCAL VACCINE POLYVALENT 0.5 ML VIAL [PPSV23] IM ONE (19:15)
[2018-10-19 19:47] VITALS: BP 139/89
[2018-10-19] MEDS ORDERED: LORazepam 2 MG/ML VIAL IM ONE (20:00)
[2018-10-19] MEDS ORDERED: DiphenhydrAMINE HCL 50 MG/ML VIAL IM ONE (20:00)
[2018-10-19] MEDS: QUEtiapine FUMARATE 100 MG TABLET PO SCH (20:19)
[2018-10-19] MEDS: DIVALPROEX SODIUM 500 MG ER TABLET PO SCH (20:19)
[2018-10-19] MEDS: LORazepam 2 MG TABLET PO PRN (20:20)
[2018-10-19] MEDS ORDERED: PETROLATUM,WHITE 71 GM JELLY TP PRN (21:30)
[2018-10-19] MEDS ORDERED: MAGNESIUM HYDROXIDE SUSPENSION 30 ML UDCUP PO PRN (21:30)
[2018-10-19] MEDS ORDERED: BACITRACIN 28.4 GM OINTMENT TP PRN (21:30)
[2018-10-19] MEDS ORDERED: ACETAMINOPHEN 325 MG TABLET PO PRN (21:30)
[2018-10-19] MEDS ORDERED: MAG HYDROX/AL HYDROX/SIMETH ES 30 ML SUSPENSION UDCUP PO PRN (21:30)
[2018-10-19] MEDS ORDERED: ONDANSETRON HCL 4 MG TABLET PO PRN (21:30)
[2018-10-19] MEDS ORDERED: LOPERAMIDE HCL 2 MG CAPSULE PO PRN (21:30)
[2018-10-19] MEDS ORDERED: IBUPROFEN 600 MG TABLET PO PRN (21:30)
[2018-10-19] MEDS ORDERED: BENZOCAINE/MENTHOL LOZENGE MM PRN (21:30)
[2018-10-19] MEDS ORDERED: CloNIDine HCL 0.1 MG TABLET PO PRN (21:30)
[2018-10-19] MEDS ORDERED: ALBUTEROL SULFATE HFA 90 MCG/PUFF 8 GM INHALER IH PRN (21:30)
[2018-10-20 05:23] VITALS: BP 121/76
[2018-10-20 07:32] LABS: BASOPHILS % (AUTO) 0.9 % (0.0-2.0); EOSINOPHILS % (AUTO) 3.1 % (1.0-6.0); HEMATOCRIT 37.7 % (41-53); HEMOGLOBIN 13.2 g/dL (13.5-17.5); LYMPHOCYTES # (AUTO) 2.6 K/uL (1.0-4.8); LYMPHOCYTES % (AUTO) 44.2 % (22.0-44.0); MEAN CORPUSCULAR HEMOGLOBIN 31.3 pg (26.0-34.0); MEAN CORPUSCULAR HGB CONC 34.9 G/dL (31.0-37.0); MEAN CORPUSCULAR VOLUME 90 fL (80-100); MONOCYTES # (AUTO) 0.5 K/uL (0.1-1.0); MONOCYTES % (AUTO) 7.9 % (2.0-9.0); NEUTROPHILS # (AUTO) 2.5 K/uL (1.8-7.7); NEUTROPHILS % (AUTO) 43.9 % (40.0-70.0); PLATELET COUNT (AUTO) 218 K/uL (150-450); RED BLOOD CELL COUNT(AUTO) 4.21 MIL/uL (4.50-5.90); RED CELL DISTRIBUTION WIDTH 14.2 % (11.5-14.5)
[2018-10-20 07:46] LABS: HEMOGLOBIN A1C 5.3 % (4.5-6.2)
[2018-10-20 08:10] LABS: ALANINE AMINOTRANSFERASE 28 U/L (12-78); ALBUMIN 3.6 g/dL (3.4-5.0); ALKALINE PHOSPHATASE 66 U/L (46-116); ANION GAP 7 mmol/L (8-16); ASPARTATE AMINOTRANSFERASE 17 U/L (15-37); BILIRUBIN,TOTAL 0.2 mg/dL (0.1-1.0); CALCIUM, TOTAL 8.9 mg/dL (8.8-10.5); CARBON DIOXIDE 27 mmol/L (22-29); CHLORIDE 107 mmol/L (98-107); CHOL/HDL RATIO 4.2 (4.2-7.3); CHOLESTEROL 151 mg/dL (131-200); CREATININE 0.77 mg/dL (0.60-1.30); FREE T4 (FREE THYROXINE) 0.77 ng/dL (0.76-1.46); GLOMERULAR FILTR. RATE CALC > 60 mL/min (>60); GLUCOSE,RANDOM 83 mg/dL (70-110); HDL CHOLESTEROL 36 mg/dL (40-60); LDL CHOL (CALC.) 102 mg/dL (0-130); POTASSIUM 4.3 mmol/L (3.5-5.1); SODIUM SERUM 141 mmol/L (136-145); THYROID STIMULATING HORMONE 1.04 uIU/mL (0.36-3.74); TOTAL PROTEIN, SERUM 6.5 g/dL (6.4-8.2); TRIGLYCERIDES 67 mg/dL (15-150); UREA NITROGEN, BLOOD 17 mg/dL (7-18)
[2018-10-20] MEDS: ARIPiprazole 5 MG TABLET PO SCH (09:27)
[2018-10-20] MEDS: DOCUSATE SODIUM 100 MG CAPSULE PO SCH (09:27)
[2018-10-20] MEDS: OMEPRAZOLE 20 MG CAPSULE PO SCH (09:27)
[2018-10-20 09:43] VITALS: BP 135/72
[2018-10-20] MEDS: QUEtiapine FUMARATE 100 MG TABLET PO SCH (20:23)
[2018-10-20] MEDS: DIVALPROEX SODIUM 500 MG ER TABLET PO SCH (20:23)
[2018-10-21 06:05] VITALS: BP 116/71
[2018-10-21 08:06] VITALS: BP 118/62
[2018-10-21] MEDS: DOCUSATE SODIUM 100 MG CAPSULE PO SCH (08:58)
[2018-10-21] MEDS: OMEPRAZOLE 20 MG CAPSULE PO SCH (08:58)
[2018-10-21] MEDS: ARIPiprazole 5 MG TABLET PO SCH (08:58)
[2018-10-21] MEDS: LORazepam 2 MG TABLET PO PRN ×2 (11:34→16:44)
[2018-10-21] MEDS ORDERED: GuaiFENesin/D-METHORPHAN [SUGAR-FREE] 200-20MG/10 ML SYRUP UDCUP PO PRN (14:45)
[2018-10-21 16:26] VITALS: BP 117/66
[2018-10-21] MEDS: THIAMINE HCL 100 MG TABLET PO SCH (16:44)
[2018-10-21] MEDS: DIVALPROEX SODIUM 500 MG ER TABLET PO SCH (20:16)
[2018-10-21] MEDS: QUEtiapine FUMARATE 100 MG TABLET PO SCH (20:16)
[2018-10-22 05:47] VITALS: BP 123/72
[2018-10-22 08:05] VITALS: BP 110/62
[2018-10-22] MEDS: MULTIVITAMINS WITH MINERALS, THERAPEUTIC TABLET PO SCH (08:44)
[2018-10-22] MEDS: THIAMINE HCL 100 MG TABLET PO SCH ×2 (08:44→16:36)
[2018-10-22] MEDS: DOCUSATE SODIUM 100 MG CAPSULE PO SCH (08:44)
[2018-10-22] MEDS: FOLIC ACID 1 MG TABLET PO SCH (08:44)
[2018-10-22] MEDS: ARIPiprazole 5 MG TABLET PO SCH (08:44)
[2018-10-22] MEDS: OMEPRAZOLE 20 MG CAPSULE PO SCH (08:44)
[2018-10-22] MEDS: LORazepam 2 MG TABLET PO PRN (12:45)
[2018-10-22] MEDS ORDERED: QUEtiapine FUMARATE 100 MG TABLET PO PRN (12:45)
[2018-10-22] MEDS: QUEtiapine FUMARATE 25 MG TABLET PO SCH ×2 (12:58→16:36)
[2018-10-22 16:36] VITALS: BP 117/74
[2018-10-22] MEDS: HydrOXYzine PAMOATE 50 MG CAPSULE PO PRN (16:36)
[2018-10-22] MEDS: DIVALPROEX SODIUM 500 MG ER TABLET PO SCH (20:21)
[2018-10-22] MEDS ORDERED: QUEtiapine FUMARATE 200 MG TABLET PO SCH (21:00)
[2018-10-23 04:04] VITALS: BP 123/80
[2018-10-23] MEDS: LORazepam 2 MG TABLET PO PRN ×2 (04:04→14:02)
[2018-10-23] MEDS: HydrOXYzine PAMOATE 50 MG CAPSULE PO PRN (04:04)
[2018-10-23] MEDS: OMEPRAZOLE 20 MG CAPSULE PO SCH (08:37)
[2018-10-23] MEDS: DOCUSATE SODIUM 100 MG CAPSULE PO SCH (08:37)
[2018-10-23] MEDS: MULTIVITAMINS WITH MINERALS, THERAPEUTIC TABLET PO SCH (08:37)
[2018-10-23] MEDS: FOLIC ACID 1 MG TABLET PO SCH (08:37)
[2018-10-23] MEDS: THIAMINE HCL 100 MG TABLET PO SCH ×2 (08:37→16:29)
[2018-10-23] MEDS: QUEtiapine FUMARATE 25 MG TABLET PO SCH ×3 (08:37→16:28)
[2018-10-23 09:47] VITALS: BP 110/63
[2018-10-23 16:22] VITALS: BP 125/72
[2018-10-23] MEDS: DIVALPROEX SODIUM 500 MG ER TABLET PO SCH (20:17)
[2018-10-23] MEDS ORDERED: QUEtiapine FUMARATE 300 MG TABLET PO SCH (21:00)
[2018-10-24 02:40] VITALS: BP 113/70
[2018-10-24 08:18] VITALS: BP 125/77
[2018-10-24] MEDS: QUEtiapine FUMARATE 25 MG TABLET PO SCH ×3 (09:03→16:53)
[2018-10-24] MEDS: MULTIVITAMINS WITH MINERALS, THERAPEUTIC TABLET PO SCH (09:04)
[2018-10-24] MEDS: OMEPRAZOLE 20 MG CAPSULE PO SCH (09:04)
[2018-10-24] MEDS: DOCUSATE SODIUM 100 MG CAPSULE PO SCH (09:04)
[2018-10-24] MEDS: THIAMINE HCL 100 MG TABLET PO SCH ×2 (09:04→16:53)
[2018-10-24] MEDS: LORazepam 2 MG TABLET PO PRN ×3 (09:04→21:27)
[2018-10-24] MEDS: FOLIC ACID 1 MG TABLET PO SCH (09:04)
[2018-10-24] MEDS ORDERED: DIVA500T52 PO (15:42)
[2018-10-24] MEDS ORDERED: QUET200T29 PO (15:42)
[2018-10-24] MEDS ORDERED: QUET25TA34 PO (15:42)
[2018-10-24 16:06] VITALS: BP 111/68
[2018-10-24] MEDS: HydrOXYzine PAMOATE 50 MG CAPSULE PO PRN (16:53)
[2018-10-24] MEDS: DIVALPROEX SODIUM 500 MG ER TABLET PO SCH (20:48)
[2018-10-24] MEDS ORDERED: QUEtiapine FUMARATE 200 MG TABLET PO SCH (21:00)
[2018-10-25] MEDS ORDERED: DIVA500T52 PO (06:01)
[2018-10-25] MEDS ORDERED: NALT50TA PO (06:03)
[2018-10-25] MEDS ORDERED: QUET25TA34 PO (06:04)
[2018-10-25] MEDS ORDERED: QUET200T PO (06:07)
[2018-10-25 06:43] VITALS: BP 117/70
[2018-10-25 08:06] VITALS: BP 134/86
[2018-10-25] MEDS: FOLIC ACID 1 MG TABLET PO SCH (08:30)
[2018-10-25] MEDS: DOCUSATE SODIUM 100 MG CAPSULE PO SCH (08:30)
[2018-10-25] MEDS: MULTIVITAMINS WITH MINERALS, THERAPEUTIC TABLET PO SCH (08:30)
[2018-10-25] MEDS: THIAMINE HCL 100 MG TABLET PO SCH (08:30)
[2018-10-25] MEDS: OMEPRAZOLE 20 MG CAPSULE PO SCH (08:30)
[2018-10-25] MEDS: QUEtiapine FUMARATE 25 MG TABLET PO SCH (08:30)
== END 2018-10-25 10:50 | disposition home or self-care (01) | DRG 885 ==
LOC: B3A 18:00
PROVIDERS: ADMIT Psychiatry & Neurology Psychiatry; ATTEND Psychiatry & Neurology Psychiatry
DX: F31.5 Bipolar disorder, current episode depressed, severe, with psychotic features (principal); F17.200 Nicotine dependence, unspecified, uncomplicated; F12.90 Cannabis use, unspecified, uncomplicated; F15.10 Other stimulant abuse, uncomplicated; F41.9 Anxiety disorder, unspecified; J45.909 Unspecified asthma, uncomplicated; Z79.899 Other long term (current) drug therapy; Z71.51 Drug abuse counseling and surveillance of drug abuser; Z71.6 Tobacco abuse counseling; Z88.1 Allergy status to other antibiotic agents; Z88.8 Allergy status to other drugs, medicaments and biological substances; Z28.21 Immunization not carried out because of patient refusal
CPT/HCPCS: 83036; 84439; 84443